=== PATIENT | female | born 1975 | race Caucasian/White ===

== ENCOUNTER 2023-10-21 19:28 | Emergency (ER) | payer BC, SELFPAY ==
[2023-10-21 19:39] VITALS: BP 145/108; PULSE 84; RESP 18; TEMP 36.6; O2SAT 99; BMI 24.1
--- NOTE | 2023-10-21 19:50 | ED_ITS ---
HPI - Abdominal Pain General Time Seen by Provider: 19:50 Date Seen: 10/21/23 Chief Complaint: Abdominal Pain Stated Complaint: L side abdominal pain Time Seen by Provider: 10/21/23 19:46 Source: patient Mode of arrival: ambulatory Limitations: no limitations History of Present Illness HPI narrative: Gemini is a very pleasant 48-year-old female with history of abdominal hysterectomy 4 weeks ago without complication who comes to the emergency room for evaluation of left lower quadrant pain. Patient notes that she felt some abdominal discomfort coming around noon today but thought her pants may have been rubbing on her incision. At approximately 1600 hours she had a sudden onset of left lower quadrant pain that radiated into her back and occasionally across her abdomen. She has had no urinary symptoms to include dysuria or hematuria. She notes that 10 years ago she had kidney stones and she was able to pass them. She denies nausea vomiting. She notes that she cannot lay back because it hurts and she cannot stand up because it hurts. She has not taken any medication for discomfort. Related Data Allergies Allergy/AdvReac Type Severity Reaction Status Date / Time Iodinated Contrast Media Allergy Severe Shortness Verified 10/21/23 20:41 of Breath hydrocodone AdvReac Intermediate Nausea/Vomi Verified 10/21/23 20:41 ting codeine AdvReac Mild Nausea/Vomi Verified 10/21/23 20:41 ting Review of Systems Status of ROS Reports: 10 or more systems reviewed and unremarkable except as noted in History and below Const Denies: fever, chills or fatigue Eyes Denies: change in vision ENMT Denies: throat pain, neck pain or hoarseness Cardio Denies: chest pain or shortness of breath with exertion Resp Denies: shortness of breath or cough GI Reports: abdominal pain; Denies: nausea, vomiting or diarrhea Denies: painful urination, urinary frequency or blood in urine Musculo Reports: back pain; Denies: neck pain or extremity pain Integ/Breast Denies: rash Neuro Denies: headache Endo Denies: fatigue PFSH PFSH Social History Smoking Status: Unknown if ever smoked Exam Narrative: Exam Narrative: Patient is alert and oriented. She is in obvious discomfort and very guarded in her movement. Ears eyes nose clear. Heart with regular rate and rhythm and lungs are clear to auscultation bilaterally. Abdomen is soft. Really cannot recreate the pain although patient is incredibly guarded. No CVA tenderness with percussion. No evidence of bulging in the groin. No lesions noted.. No rebound tenderness. Lower extremity pulses symmetrical. Const: Vital Signs, click to edit/add: Vital Signs - 24 hr 10/21/23 19:39 10/21/23 21:00 10/21/23 22:00 Temperature 97.8 F Pulse Rate [Right Pulse Oximeter] 84 55 L 50 L Respiratory Rate 18 Blood Pressure [Ri ght Upper Arm] 145/108 H 111/72 118/72 Pulse Oximetry 99 96 100 Oxygen Delivery Me thod Room Air Room Air Room Air Documenting provider has reviewed patient's vital signs: yes Course Course ED Course: Differential diagnosis includes but is not limited to ureteral colic, pyelonephritis, diverticulitis, colitis, internal hernia, musculoskeletal etiology. Patient will have IV placed. Pain control with morphine 4 mg, Toradol 15 mg and Zofran 4 mg as well as 1 L of normal saline. Patient notes that she has an IV contrast allergy and therefore will proceed with abdominal CT without contrast. CBC, comprehensive, CRP pending at this time. Reevaluation(s) Reevaluation #1: Patient noted to have increasing pain and Dilaudid 0.5 mg IV was given. Patient complained of some epigastric discomfort and related this to the use of Toradol. Patient wanted to drink has some diet soda but I asked her to hold off at this time. Did give her famotidine 20 mg IV. Reevaluation #2: Awaiting CT results patient's pain is increasing again and gave her Dilaudid 0.5 mg for a 2nd time. Reevaluation #3: CT is negative for any acute findings. Will ultrasound patient as urinalysis is negative for hematuria. Vital Signs Vital signs: Initial Vital Signs Temperature 97.8 F 10/21/23 19:39 Temperature Source Temporal Artery Scan 10/21/23 19:39 Pulse Rate 84 10/21/23 19:39 Respiratory Rate 18 10/21/23 19:39 Blood Pressure 145/108 H 10/21/23 19:39 Blood Pressure Mean 120 H 10/21/23 19:39 Blood Pressure Position Sitting 10/21/23 19:39 Pulse Oximetry 99 10/21/23 19:39 Oxygen Delivery Method Room Air 10/21/23 19:39 Vital Signs Temperature 97.8 F 10/21/23 19:39 Pulse Rate 84 10/21/23 19:39 Respiratory Rate 18 10/21/23 19:39 Blood Pressure 145/108 H 10/21/23 19:39 Pulse Oximetry 99 10/21/23 19:39 Oxygen Delivery Method Room Air 10/21/23 19:39 Temperature 97.8 F 10/21/23 19:39 Pulse Rate 50 L 10/21/23 22:00 Respiratory Rate 18 10/21/23 19:39 Blood Pressure 118/72 10/21/23 22:00 Pulse Oximetry 100 10/21/23 22:00 Oxygen Delivery Method Room Air 10/21/23 22:00 Medications Administered Medications: Discontinued Medications Generic Name Dose Route Start Last Admin Trade Name Freq PRN Reason Stop Dose Admin Famotidine 20 mg 10/21/23 21:31 10/21/23 21:40 Famotidine 10 Mg/Ml Inj IVP 10/21/23 21:32 20 mg ONCE ONE Administration Hydromorphone HCl 0.5 mg 10/21/23 21:13 10/21/23 21:17 Hydromorphone 0.5 Mg/0.5 Ml Inj IVP 10/21/23 21:14 0.5 mg ONCE ONE Administration Hydromorphone HCl 0.5 mg 10/22/23 00:56 10/22/23 01:05 Hydromorphone 0.5 Mg/0.5 Ml Inj IVP 10/22/23 00:57 0.5 mg ONCE ONE Administration Sodium Chloride 1,000 mls @ 1,000 mls/hr 10/21/23 19:59 10/21/23 21:48 0.9 % Sodium Chloride 1000 Ml IV 10/21/23 20:58 Infused .Q1H JOHN Infusion Ketorolac Tromethamine 15 mg 10/21/23 19:59 10/21/23 20:26 Ketorolac 15 Mg/Ml Inj IVP 10/21/23 20:00 15 mg ONCE ONE Administration Morphine Sulfate 4 mg 10/21/23 19:59 10/21/23 20:26 Morphine 4 Mg/Ml Inj IVP 10/21/23 20:00 4 mg ONCE ONE Administration Ondansetron HCl 4 mg 10/21/23 19:59 10/21/23 20:26 Ondansetron 2 Mg/Ml Inj IVP 10/21/23 20:00 4 mg ONCE ONE Administration MDM - Abdominal Pain MDM Narrative Medical decision making narrative: 1. Abdominal pain-patient improved with pain medications. At this time white count, CRP, within normal limits. I did not do a lactate given lack of fever and patient's bicarb was within normal limits. Further all her laboratory values were normal. CT was noncontrast but did not show any evidence of a bowel obstruction, ureteral stone or other abnormality. Patient received a total of morphine 4 mg, Toradol 15 mg, Zofran 4 mg, Dilauddid 0.5 mg x 2. At this time we are awaiting ultrasound report from Radiology. If negative patient will be discharged home. 2. Disposition this patient is signed out to my partner Dr. Hutton. If ultrasound is negative patient will be discharged home with suggestion to return for worsening symptoms. If it is positive Dr. Hutton will talk to her about that results. Patient is aware of this plan. I have told her that if for pain again worsens or she has the onset of other symptoms she will need to return. At that time may repeat labs and/or a CT based on examination. Note during patient's stay here she has not been tachycardic nor hypoxic. No chest pain is reported. Medical Records Attestation: I reviewed the patient's medical records. Lab Data Attestation: I reviewed the patient's lab results. Labs: Lab Results 10/21/23 10/21/23 10/21/23 Range/Units 19:45 19:55 19:59 WBC 5.66 (4.50-11.00) K/uL RBC 4.91 (4.00-5.20) m/uL Hgb 13.0 (12.0-16.0) gm/dL Hct 40.9 (33.0-51.0) % MCV 83 (80-100) fL MCH 27 (26-34) pg MCHC 32 (32-36) gm/dL Plt Count 207 (140-440) K/uL Neut % (Auto) 59.8 (42.0-72.0) % Lymph % (Auto) 29.2 (20-44) % [place] % (Auto) 7.8 (0.0-11.0) % Eos % (Auto) 2.7 (0.0-7.0) % Baso % (Auto) 0.5 (0.0-3.0) % Neut # (Auto) 3.39 (1.7-7.0) K/uL Lymph # (Auto) 1.65 (0.90-2.90) K/uL [place] # (Auto) 0.40 (0.00-0.90) K/UL Eos # (Auto) 0.15 (0.00-0.50) K/uL Baso # (Auto) 0.03 (0.00-0.30) K/uL Abs Immat Gran (auto) 0.00 (0.00-0.30) K/uL Imm/Tot Granulo (auto) 0.0 % Sodium Cancelled 136 Potassium Cancelled 4.2 Chloride Cancelled 105 Carbon Dioxide Cancelled 22 Anion Gap Cancelled 9 BUN Cancelled 10 Creatinine Cancelled 0.6 Estimated Creat Clear Cancelled 105.42 Estimated GFR Cancelled 112 Glucose Cancelled 76 Lactate 0.8 (0.5-1.9) mmol/L Calcium Cancelled 9.5 Total Bilirubin 0.3 (0.1-1.5) mg/dL AST 30 (12-35) U/L ALT 19 (4-35) U/L Alkaline Phosphatase 33 L (40-150) U/L C-Reactive Protein < 0.5 L (0.5-1.0) mg/dL Total Protein 7.9 (6.0-8.3) g/dL Albumin 4.6 (3.3-5.0) g/dL Urine Color Yellow (Yellow) Urine Appearance Clear (Clear) Urine pH 6.0 (5.0-8.5) Ur Specific [place] <= 1.005 (1.000-1.030) Urine Protein Negative (Negative) Urine Glucose (UA) Negative (Negative) Urine Ketones Negative (Negative) Urine Blood Trace-intact A (Negative) Urine Nitrite Negative (Negative) Urine Bilirubin Negative (Negative) Urine Urobilinogen 0.2 (0.2-1.0) Ur Leukocyte Esterase Negative (Negative) Urine RBC 0-2 (0-2) Urine WBC 0-2 (0-5) Ur Squamous Epith Cells None (None-Few) Urine Bacteria None (None) Imaging Data CT scan - abdomen: Attestation: I have reviewed the pertinent imaging results. Radiologist's impression: Lower Chest: No focal consolidation. Normal heart size. No pleural effusions or pneumothorax. Liver: Normal. Gallbladder: Cholecystectomy. Biliary: No biliary ductal dilitation. Pancreas: Normal. Spleen: Normal. Adrenal Glands: Normal. Kidneys: Limited evaluation of the kidneys without the use of intravenous contrast. No obstructive urinary calculus. No hydronephrosis. No suspicious renal masses. Ureters: Normal. No hydroureter. Urinary Bladder: Normal. Bowel: No obstruction or bowel wall thickening. The appendix is normal. Mild colonic stool burden. Pelvic organs: Unremarkable. Peritoneum: No ascites or pneumoperitoneum. Vessels: Mild atherosclerotic calcifications of the abdominal aorta. No aneurysms. Lymph Nodes: No lymphadenopathy. Abdominal Wall/Soft Tissues: Small fat containing umbilical hernia. Bones: Unremarkable. IMPRESSION: Limited evaluation of the kidneys without the use of intravenous contrast. 1. No obstructive calculus or hydronephrosis. 2. No acute abdominopelvic pathology. The etiology of the patient`s left lower quadrant pain is not elucidated on this examination. Discharge Plan Discharge Clinical Impression: Abdominal pain Patient Disposition: Home w/ Parent or Adult Condition: Improved Additional Instructions: This time we do not have etiology for your pain. Will discharge you home at this time. Ibuprofen or Tylenol as needed for pain. Seek medical attention/return to the emergency room for worsening symptoms. Follow-up with your primary MD if you do not has resolution of your symptoms. Follow Up/Referrals: Provider,Not a Local [Primary Care Provider] - Stand Alone Forms: [facility] Info Instructions
--- NOTE | 2023-10-21 19:59 | CRLHL7_ITS ---
For Patients: As a result of the Century Cures Act, medical imaging exams and procedure reports are released immediately into your electronic medical record. You may view this report before your referring provider. If you have questions, please contact your health care provider. INDICATION: Left lower quadrant pain, history of kidney stones 10 years ago. TECHNIQUE: Multiplanar CT examination of the abdomen and pelvis was performed without the use of intravenous contrast, stone virgen protocol. COMPARISON: CT abdomen pelvis 12/20/2015. FINDINGS: Limited evaluation of the solid organs without the use of intravenous contrast. Lower Chest: No focal consolidation. Normal heart size. No pleural effusions or pneumothorax. Liver: Normal. Gallbladder: Cholecystectomy. Biliary: No biliary ductal dilitation. Pancreas: Normal. Spleen: Normal. Adrenal Glands: Normal. Kidneys: Limited evaluation of the kidneys without the use of intravenous contrast. No obstructive urinary calculus. No hydronephrosis. No suspicious renal masses. Ureters: Normal. No hydroureter. Urinary Bladder: Normal. Bowel: No obstruction or bowel wall thickening. The appendix is normal. Mild colonic stool burden. Pelvic organs: Unremarkable. Peritoneum: No ascites or pneumoperitoneum. Vessels: Mild atherosclerotic calcifications of the abdominal aorta. No aneurysms. Lymph Nodes: No lymphadenopathy. Abdominal Wall/Soft Tissues: Small fat containing umbilical hernia. Bones: Unremarkable. IMPRESSION: Limited evaluation of the kidneys without the use of intravenous contrast. 1. No obstructive calculus or hydronephrosis. 2. No acute abdominopelvic pathology. The etiology of the patient`s left lower quadrant pain is not elucidated on this examination. Please note that all CT scans at this facility use dose modulation, iterative reconstruction, and/or weight-based dosing when appropriate to reduce radiation dose to as low as reasonably achievable. Dictated by Juan Valdivia MD @ 10/21/2023 10:07:35 PM (Electronically Signed)
[2023-10-21 20:08] LABS: Lactate* 0.8 mmol/L (0.5-1.9)
[2023-10-21 20:14] LABS: Basophils Absolute Auto 0.03 K/uL (0.00-0.30); Basophils Percent Auto 0.5 % (0.0-3.0); Eosinophils Absolute Auto 0.15 K/uL (0.00-0.50); Eosinophils Percent Auto 2.7 % (0.0-7.0); Hematocrit 40.9 % (33.0-51.0); Lymphocytes Absolute Auto 1.65 K/uL (0.90-2.90); Lymphocytes Percent Auto 29.2 % (20-44); Mean Corpuscular HGB Conc 32 gm/dL (32-36); Mean Corpuscular Hemoglobin 27 pg (26-34); Mean Corpuscular Volume 83 fL (80-100); Monocytes Percent Auto 7.8 % (0.0-11.0); Neutrophils Absolute Auto 3.39 K/uL (1.7-7.0); Neutrophils Percent Auto 59.8 % (42.0-72.0); Platelet Count* 207 K/uL (140-440); Red Blood Count 4.91 m/uL (4.00-5.20); White Blood Count* 5.66 K/uL (4.50-11.00)
[2023-10-21 20:20] LABS: Appearance Urine Clear (Clear); Bilirubin Urine Negative (Negative); Blood Urine Trace-intact (Negative); Color Urine Yellow (Yellow); Glucose Urine Negative (Negative); Ketones Urine Negative (Negative); Leukocyte Esterase Urine Negative (Negative); Nitrite Urine Negative (Negative); Protein Urine Negative (Negative); Specific Gravity Urine <= 1.005 (1.000-1.030); Urobilinogen Urine 0.2 (0.2-1.0)
[2023-10-21 20:20] LABS: Slide Review Reflex No
[2023-10-21 20:25] LABS: Albumin* 4.6 g/dL (3.3-5.0); Chloride* 105 mmol/L (96-114); Potassium* 4.2 mmol/L (3.6-5.1); Sodium* 136 mmol/L (135-149)
[2023-10-21] MEDS: KETOROLAC 15 MG/ML inj IVP (20:26)
[2023-10-21] MEDS: MORPHINE 4 MG/ML INJ IVP (20:26)
[2023-10-21] MEDS: 0.9 % SODIUM CHLORIDE 1000 ml 1,000 ML IV (20:26)
[2023-10-21] MEDS: ONDANSETRON 2 MG/ML inj 4 MG IVP (20:26)
[2023-10-21 20:27] LABS: Creatinine* 0.6 mg/dL (0.5-1.5); Est. Creatinine Clearance* 105.42; Estimated Glomerular Filt Rate 112 ml/min
[2023-10-21 20:28] LABS: Alanine Aminotransferase* 19 U/L (4-35); Alkaline Phosphatase* 33 U/L (40-150); Aspartate Amino Transferase* 30 U/L (12-35); Bilirubin Total* 0.3 mg/dL (0.1-1.5); Blood Urea Nitrogen* 10 mg/dL (5-24); Carbon Dioxide* 22 mmol/L (20-32); Glucose* 76 mg/dL (60-115); Total Protein* 7.9 g/dL (6.0-8.3)
[2023-10-21 20:29] LABS: Calcium* 9.5 mg/dL (8.4-10.6)
[2023-10-21 20:33] LABS: RBC Urine 0-2 (0-2); WBC Urine 0-2 (0-5)
[2023-10-21 20:41] LABS: Anion Gap 9 mEq/L (7-15); C Reactive Protein* < 0.5 mg/dL (0.5-1.0)
[2023-10-21 21:00] VITALS: BP 111/72; PULSE 55; O2SAT 96
[2023-10-21] MEDS: HYDROmorphone 0.5 mg/0.5 ml inj IVP (21:17)
[2023-10-21] MEDS: FAMOTIDINE 10 MG/ML inj 20 MG IVP (21:40)
[2023-10-21 22:00] VITALS: BP 118/72; PULSE 50; O2SAT 100; O2SAT 97
--- NOTE | 2023-10-21 22:15 | CRLHL7_ITS ---
For Patients: As a result of the Century Cures Act, medical imaging exams and procedure reports are released immediately into your electronic medical record. You may view this report before your referring provider. If you have questions, please contact your health care provider. INDICATION: Left lower quadrant pain. TECHNIQUE: Ultrasound pelvis transvaginal. Real-time sonographic images with spectral and color Doppler imaging of the ovaries were obtained. COMPARISON: Same day CT abdomen and pelvis. FINDINGS: Uterus: Status post hysterectomy. Right ovary measures 3.0 x 2.0 x 2.1 cm and left ovary measures 4.4 x 2.1 x 2.9 cm. No ovarian or adnexal masses. Normal arterial and venous blood flow is demonstrated in both ovaries. Trace free fluid in the left adnexal region. Cul-de-sac: No significant free fluid. IMPRESSION: 1. Trace free fluid in the left adnexal region adjacent to the left ovary, nonspecific. 2. Otherwise unremarkable ovaries. 3. Status post hysterectomy. Dictated by Michael Marie MD @ 10/22/2023 1:35:45 AM (Electronically Signed)
[2023-10-22] VITALS: BP 119/74; PULSE 46; RESP 18; O2SAT 100
[2023-10-22] MEDS: HYDROmorphone 0.5 mg/0.5 ml inj IVP (01:05)
[2023-10-22 01:57] VITALS: BP 121/84; PULSE 65; RESP 18; TEMP 36.7; O2SAT 100
[2023-10-22 01:58] VITALS: BP 121/84; PULSE 65; RESP 18; TEMP 36.7
== END 2023-10-22 02:02 | disposition home or self-care (01) ==
PROVIDERS: Family Medicine; Emergency Provider Family Medicine
DX: R10.32 Left lower quadrant pain (principal)
CPT/HCPCS: 36415; 74176; 76830; 80048; 80053; 81001; 81003; 81015; 83605; 85025; 86140; 93976; 94761; 96374; 96375; 99284; J1170; J1885; J2270; J2405; J7030; S0028

== ENCOUNTER 2024-09-24 22:06 | Emergency (ER) | payer OTHER, SELFPAY ==
[2024-09-24 22:12] VITALS: BP 143/77; PULSE 64; RESP 18; TEMP 35.8; O2SAT 100; BMI 27.5
--- NOTE | 2024-09-24 23:15 | CRLHL7_ITS ---
For Patients: As a result of the Century Cures Act, medical imaging exams and procedure reports are released immediately into your electronic medical record. You may view this report before your referring provider. If you have questions, please contact your health care provider. Indication: Right lower quadrant and right flank pain Technique: Noncontrast CT through the abdomen and pelvis with multiplanar reformats. Comparison: CT abdomen and pelvis performed 10/21/2023 Findings: Lower chest: No acute abnormality appreciated. Hepatobiliary: No significant parenchymal abnormality is appreciated. Cholecystectomy. Spleen: Unremarkable. Pancreas: No acute abnormality appreciated. Adrenal glands: No acute abnormality appreciated. Kidneys: Nonobstructing [id number]-left renal stones. No hydronephrosis. No acute parenchymal abnormality appreciated. Bowel: No obstruction. No focal perienteric or pericolonic stranding is appreciated. The appendix is visualized and appears unremarkable. Vascular: Calcified atherosclerosis. Lymph nodes: No gross lymphadenopathy. Peritoneum: No free air. No free fluid. : No acute abnormality appreciated. Soft tissues: No acute abnormality appreciated. Bones: No acute fracture. No lytic or blastic lesion. Mild lumbosacral spondylosis. Impression: Nonobstructing [id number]-left renal stones, no other acute abnormality appreciated to account for patient`s reported symptoms. Please note that all CT scans at this facility use dose modulation, iterative reconstruction, and/or weight-based dosing when appropriate to reduce radiation dose to as low as reasonably achievable. Dictated by Faisal Vaca MD @ 09/24/2024 11:52:39 PM (Electronically Signed)
--- NOTE | 2024-09-24 23:16 | ED_ITS ---
HPI - Abdominal Pain General Chief Complaint: Abdominal Pain Stated Complaint: Abdominal pain, vomiting Time Seen by Provider: 09/24/24 23:08 History of Present Illness HPI narrative: This 49-year-old female comes in with her significant other reporting right lower quadrant and right flank pain that began about 3 or 4 hours prior to arrival. She states that it came on rather suddenly and has been severe and constant since then. She reports nausea with vomiting but does not have any diarrhea or dysuria symptoms. She has not had any fevers. Related Data Allergies Allergy/AdvReac Type Severity Reaction Status Date / Time Iodinated Contrast Media Allergy Severe Shortness Verified 10/21/23 20:41 of Breath hydrocodone AdvReac Intermediate Nausea/Vomi Verified 10/21/23 20:41 ting codeine AdvReac Mild Nausea/Vomi Verified 10/21/23 20:41 ting Review of Systems Status of ROS Reports: 10 or more systems reviewed and unremarkable except as noted in History and below Narrative Constitutional: No fevers, no weight gain or loss. Eyes: No discharge. No vision changes. HENT: No congestion, no sore throat, no ear pain. Cardiovascular: No chest pain, no palpitations. Respiratory: No shortness of breath, no wheezes, no cough. Gastrointestinal: Right lower quadrant abdominal pain and right flank pain with associated nausea and vomiting. Genitourinary: No dysuria, no hematuria. Musculoskeletal: Normal range of motion. Skin: No rashes, no pruritis. Neurological: No dizziness, weakness, sensory change, speech change. Endo/Heme/Allergies: No bruising or bleeding. No polydipsia. Pysch: no suicidality, no anxiety, no insomnia. All other systems reviewed and are negative. [facility] Social History Smoking Status: Unknown if ever smoked Exam Narrative: Exam Narrative: Constitutional: Well-developed, well-nourished, no acute distress. HEENT: Normocephalic, atraumatic. Neck: Normal range of motion. Nontender. Supple. Heart: Regular. No murmurs. Normal rate. Intact distal pulses. Lungs: Clear to auscultation. No chest discomfort. No wheezes, rhonchi, or rales. Abdomen: Normal bowel sounds. Tenderness when palpating in the right lower quadrant.. No obvious rebound tenderness. Genitalia: Deferred. Back: No midline tenderness. Normal range of motion. Extremities: Normal range of motion. No injury. Skin: Intact. No rash. Warm. No erythema or pallor. Neurologic: No altered sensation. No weakness. Alert and oriented. Psychiatric: No suicidality. No anxiety or depression. No insomnia. Nursing notes and vitals signs are reviewed. Const: Vital Signs, click to edit/add: Vital Signs - 24 hr 09/24/24 22:12 Temperature 96.4 F L Pulse Rate [Left P ulse Oximeter] 64 Respiratory Rate 18 Blood Pressure [Ri t Upper Arm] 143/77 H Pulse Oximetry 100 Oxygen Delivery Me thod Room Air Course Vital Signs Vital signs: Initial Vital Signs Temperature 96.4 F L 09/24/24 22:12 Temperature Source Temporal Artery Scan 09/24/24 22:12 Pulse Rate 64 09/24/24 22:12 Pulse Rhythm Regular 09/24/24 22:12 Respiratory Rate 18 09/24/24 22:12 Blood Pressure 143/77 H 09/24/24 22:12 Blood Pressure Mean 99 09/24/24 22:12 Blood Pressure Position Sitting 09/24/24 22:12 Pulse Oximetry 100 09/24/24 22:12 Oxygen Delivery Method Room Air 09/24/24 22:12 Vital Signs Temperature 96.4 F L 09/24/24 22:12 Pulse Rate 64 09/24/24 22:12 Respiratory Rate 18 09/24/24 22:12 Blood Pressure 143/77 H 09/24/24 22:12 Pulse Oximetry 100 09/24/24 22:12 Oxygen Delivery Method Room Air 09/24/24 22:12 Temperature 96.4 F L 09/24/24 22:12 Pulse Rate 64 09/24/24 22:12 Respiratory Rate 18 09/24/24 22:12 Blood Pressure 143/77 H 09/24/24 22:12 Pulse Oximetry 100 09/24/24 22:12 Oxygen Delivery Method Room Air 09/24/24 22:12 Medications Administered Medications: Generic Name Dose Route Start Last Admin Trade Name Freq PRN Reason Stop Dose Admin Hydromorphone HCl 0.5 mg 09/24/24 23:14 09/24/24 23:30 Hydromorphone 0.5 Mg/0.5 Ml Inj IVP 09/24/24 23:15 0.5 mg ONCE ONE Administration Sodium Chloride 500 mls @ 500 mls/hr 09/24/24 23:14 09/24/24 23:31 0.9 % Sodium Chloride 500 Ml IV 09/25/24 00:13 500 mls/hr .Q1H ONE Administration Ondansetron HCl 4 mg 09/24/24 23:14 09/24/24 23:30 Ondansetron 2 Mg/Ml Inj IVP 09/24/24 23:15 4 mg ONCE ONE Administration MDM - Abdominal Pain MDM Narrative Medical decision making narrative: This patient comes in with abdominal pain as described above. She was rather miserable when she arrived. She had an IV placed and did receive Dilaudid 0.5 mg and Zofran 4 mg. This brought some relief to her symptoms. CT imaging of the abdomen and pelvis is obtained without contrast and shows no acute abnormalities to explain her pain other than bilateral nonobstructive renal stones, right greater than left. This patient has been having occasions of abdominal pain randomly. It may be related to kidney stones but there is no other obvious finding to explain this. Lab results also are returning with reassuring findings. The patient is okay to be discharged home and did receive [facility] prescriptions for Toradol and Zofran. I advised her to follow-up with gastroenterology clinic or surgery clinic for ongoing management. Lab Data Labs: Lab Results 09/24/24 Range/Units 23:25 WBC 9.12 (4.50-11.00) K/uL RBC 4.42 (4.00-5.20) m/uL Hgb 14.1 (12.0-16.0) gm/dL Hct 42.5 (33.0-51.0) % MCV 96 (80-100) fL MCH 32 (26-34) pg MCHC 33 (32-36) gm/dL RDW Coeff of [place] 13.7 (11.5-15.5) % Plt Count 166 (140-440) K/uL Neut % (Auto) 84.8 H (42.0-72.0) % Lymph % (Auto) 9.2 L (20-44) % [place] % (Auto) 5.0 (0.0-11.0) % Eos % (Auto) 0.5 (0.0-7.0) % Baso % (Auto) 0.2 (0.0-3.0) % Neut # (Auto) 7.70 H (1.7-7.0) K/uL Lymph # (Auto) 0.80 L (0.90-2.90) K/uL [place] # (Auto) 0.50 (0.00-0.90) K/UL Eos # (Auto) 0.05 (0.00-0.50) K/uL Baso # (Auto) 0.02 (0.00-0.30) K/uL Abs Immat Gran (auto) 0.03 (0.00-0.30) K/uL Imm/Tot Granulo (auto) 0.3 % Sodium 135 (135-149) mmol/L Potassium 4.9 (3.6-5.1) mmol/L Chloride 100 (96-114) mmol/L Carbon Dioxide 25 (20-32) mmol/L Anion Gap 10 (7-15) mEq/L BUN 16 (5-24) mg/dL Creatinine 0.6 (0.5-1.5) mg/dL Estimated Creat Clear 95.88 Estimated GFR 111 ml/min Glucose 127 H (60-115) mg/dL Calcium 9.8 (8.4-10.6) mg/dL Imaging Data CT scan - abdomen: Radiologist's impression: Nonobstructing [id number]-left renal stones, no other acute abnormality appreciated to account for patient`s reported symptoms. Discharge Plan Discharge Clinical Impression: Abdominal pain Patient Disposition: Home w/ Parent or Adult Condition: Stable Additional Instructions: Take medication as needed and indicated. Follow-up with clinic for ongoing diagnosis and management. Consider Gastroenterology or surgery Clinic to accomplish this. Follow up with MD otherwise as needed or return if worsening. Follow Up/Referrals: Provider,Not a Local [Primary Care Provider] - Stand Alone Forms: [employer] Info Instructions
[2024-09-24 23:30] VITALS: BP 144/90; PULSE 52; RESP 18; O2SAT 100
[2024-09-24] MEDS: HYDROmorphone 0.5 mg/0.5 ml inj IVP (23:30)
[2024-09-24] MEDS: ONDANSETRON 2 MG/ML inj 4 MG IVP (23:30)
[2024-09-24] MEDS: 0.9 % SODIUM CHLORIDE 500 ML 500 ML IV (23:31)
[2024-09-24 23:46] LABS: Basophils Absolute Auto 0.02 K/uL (0.00-0.30); Basophils Percent Auto 0.2 % (0.0-3.0); Eosinophils Absolute Auto 0.05 K/uL (0.00-0.50); Eosinophils Percent Auto 0.5 % (0.0-7.0); Hematocrit 42.5 % (33.0-51.0); Hemoglobin* 14.1 gm/dL (12.0-16.0); Immature Granulocytes Abs Auto 0.03 K/uL (0.00-0.30); Immature Granulocytes Pct Auto 0.3 %; Lymphocytes Percent Auto 9.2 % (20-44); Mean Corpuscular HGB Conc 33 gm/dL (32-36); Mean Corpuscular Hemoglobin 32 pg (26-34); Mean Corpuscular Volume 96 fL (80-100); Neutrophils Percent Auto 84.8 % (42.0-72.0); Platelet Count* 166 K/uL (140-440); RDW Coefficient of Variation % 13.7 % (11.5-15.5); Red Blood Count 4.42 m/uL (4.00-5.20); White Blood Count* 9.12 K/uL (4.50-11.00)
[2024-09-24 23:53] LABS: Slide Review Reflex No
[2024-09-24 23:55] LABS: Chloride* 100 mmol/L (96-114); Potassium* 4.9 mmol/L (3.6-5.1); Sodium* 135 mmol/L (135-149)
[2024-09-24 23:58] LABS: Anion Gap 10 mEq/L (7-15); Blood Urea Nitrogen* 16 mg/dL (5-24); Carbon Dioxide* 25 mmol/L (20-32); Creatinine* 0.6 mg/dL (0.5-1.5); Est. Creatinine Clearance* 95.88; Estimated Glomerular Filt Rate 111 ml/min; Glucose* 127 mg/dL (60-115)
[2024-09-24 23:59] LABS: Calcium* 9.8 mg/dL (8.4-10.6)
[2024-09-25] VITALS: BP 136/79; PULSE 54; RESP 16; O2SAT 100
[2024-09-25] MEDS: ONDANSETRON 2 MG/ML inj 4 MG IVP (00:15)
[2024-09-25] MEDS: KETOROLAC 30 MG/ML inj IVP (00:15)
--- OUTSIDE RECORDS SUMMARY | 2024-09-25 00:23 | XMS_ITS ---
Author Organization [facility] Address [address] [place] [address] Care Team Providers Care Manager Environmental Name Role Phone Cameron Zavala Primary Care Provider UnavailDaniel Drake Unavailable [phone] EuCarmen maurer Unavailable [phone] [address] [facility] Drug Encounters Encounter Location Date Provider Diagnosis [facility] [address] [place] [address] 09/16/2024 Carmen Eul Plan Of Treatment No Information Progress Notes * Jayla WHITFIELDOB: [birth year] (49 yo F)Acc No.[id number]:09/16/2024 Patient: Gemini DALTON :1975 A ge:49 Y S ex:Female Address:[address] [place], [address] * true * Date: Generated for Printi ng/Faxing/eTransmitting on: 11/26/2023 12:23 AM PERSONNEL MONITOR
--- OUTSIDE RECORDS SUMMARY | 2024-09-25 00:23 | XMS_ITS ---
Author Organization [facility] Address [address] [place] [address] Care Team Providers Care Activities Aide Name Role Phone Cameron Zavala Primary Care Provider Daniel Dennison Unavailable [phone] Eul, Carmen Unavailable [phone] REASON FOR VISIT RE: Encounters Encounter Location Date Provider Diagnosis [facility] [address] [place] [address] 09/16/2024 Carmen Eul Plan Of Treatment No Information Progress Notes * Jayla WHITFIELDOB: [birth year] (49 yo F)Acc No.[id number]:09/16/2024 Patient: Gemini DALTON :1975 A ge:49 Y S ex:Female Address:[address], [place], [address] * true * Date: Generated for Printi ng/Faledyg/eTransmitting on: 11/26/2023 12:22 AM DESIGN CHIEF
--- OUTSIDE RECORDS SUMMARY | 2024-09-25 00:23 | XMS_ITS | Clinical Summary ---
Author Organization [email or web address] Address [place], [place] [address] Care Team Providers Care Welfare Administrator Name Role Phone Aaron Zavala MD Primary Care Provider [phone] Allergies Active Allergy Reactions Criticality Noted Date Comments Codeine Nausea And Vomiting Medium 10/11/2012 Diatrizoate Allergen Anaphylaxis High 02/13/2021 PT WAS GIVEN OMNI 350 100 ML. PT WAS HAVING CHEST TIGHTNESS/TROUBLE SWALLOWING AFTER INJECTION. Hydrocodone-Acetamino phen Nausea And Vomiting,Other - Describe In Comment Field Medium Cold like symptoms Medications Medication Sig Dispensed Refills Start Date End Date Status ibuprofen (ADVIL; MOTRIN) 200 mg tabletIndications: Malpositioned intrauterine device (IUD), sequela Take 2-4 Tablets (400-800 mg) by mouth every 6 hours if needed for Pain (mild pain). 100 Tablet 06/06/2022 Active omeprazole (PRILOSEC) 40 mg Delayed-Release capsuleIndications :Abdominal pain, epigastric Take 1 Capsule (40 mg) by mouth once daily before a meal. 30 Capsule 12/09/2022 Active acetaminophen (TYLENOL) 325 mg tabletIndications: Abnormal uterine bleeding (AUB) Take 1-2 Tablets (325-650 mg) by mouth every 4 hours if needed for Pain. Max acetaminophen dose: 4000mg in 24 hrs. 100 Tablet 09/18/2023 Active SUMAtriptan (IMITREX) 100 mg tabletIndications: Migraine syndrome Take 1 Tablet (100 mg) by mouth every 2 hours if needed for Migraine. Give at minimum 2hrs apart. Max Dose: 200mg per 24hrs. 10 Tablet 3 12/30/2023 Active Active Problems Problem Noted Date Diagnosed Date Abnormal uterine bleeding (AUB) 09/09/2023 Vapes nicotine containing substance 09/04/2023 History of factor V Leiden mutation 01/30/2023 Nausea 01/30/2023 Overview (01/30/2023): Related to opioids Malpositioned intrauterine device (IUD) 06/05/20 Family history of colonic polyps 09/21/2019 Pap smear for cervical cancer screening 09/06/20 19 Overview (01/16/2023): 08/2019 ASCUS/HPV negative 12/2022 NIL/HPV negative Plan: Pap/HPV testing due in 5 years Myopia of both eyes with astigmatism 10/16/2016 History of migraine 10/11/2012 Headache(784.0) 10/11/2012 Abdominal pain 10/11/2012 Irritable bowel syndrome 10/11/2012 Elevated LFTs 10/11/2012 Primary hypercoagulable state 05/12/2007 Overview (05/12/2007): borderline Antithrombin 3 deficiency Anxiety state, unspecified 05/12/2007 Encounters Date Type Department Care Team Description 09/16/2024 1:00 PM SILVERWARE CLEANER Ancillary Procedure [facility] [address] [place] [address] 09/16/2024 Travel from Last 3 Months Immunizations Name Administration Dates Next Due COVID-19 vaccine (Kutuan NTech 30mcg/0.3mL) PF, MDV 08/07/2021,07/17/2021 Influenza A (H1N1), Inactiva abhishek (Age >=3 Years) 09/07/2009 Influenza, IIV3 (Age >=3 years) 08/28/20 10,08/26/2007,08/12/2005,2003 Influenza, IIV4 09/07/2019 Influenza,CCIIV4 PRESERV FREE 09/12/2016 Influenza,LAIV4 Live Intrana dacia (Flumist) 09/15/2012,07/22/2011,2009 Td (Age >=7 Years) 10/26/2003 Tdap 11/15/2014 Family History Medical History Relation Name Comments Heart Disease Brother Diabetes Father pre-diabetic Heart Disease Father [place] Cancer-colon Maternal Grandfather Diabetes Maternal Uncle Glaucoma Mother Hyperlipidemia Mother Cancer-breast Paternal Aunt Colon polyps Sister Cancerous Anesthesia Problem No Family History Blood Disease No Family History Clotting disorder No Family History Relation Name Status Comments Brother Alive Father Alive Maternal Grandfather Maternal Uncle Mother Alive Paternal Aunt Sister Alive Social History Tobacco Use Types Packs/Day Years Used Date Smoking Tobacco: Former Cigarettes Q uit: 10/25/2016 Smokeless Tobacco: Never Tobacco Cessation:Counseling Given: Not Answered Comments:E-Cig Alcohol Use Standard Drinks/Week Comments Not Currently 0 (1 standard drink = 0.6 oz pure alcohol) A couple days a week; 2 drinks at a time PHQ-2 Answer Date Recorded PHQ-2 TOTAL SCORE 1 12/09/2022 Social Connections Answer Date Recorded Do you often feel lonely or isolated from those around you? 0 09/04/2023 Financial Resource Strain Answer Date R ecorded Difficulty of Paying Living Expenses 3 12/09/2022 Difficulty of Paying Living Expenses Not on file 12/09/2022 Food Insecurity Answer Date Recorded Do you worry your food will run out before you are able to buy more? 1 09/04/2023 Transportation Needs Answer Date Record ed Does lack of transportation keep you from medica l appointments? 1 09/04/2023 Does lack of transportation keep you from work, meetings or getting things that you need? 1 09/04/2023 Housing Stability Answer Date Recorded What is your housing situation today? 1 09/04/2023 Sex and Gender Information Value Date Recorded Sex Assigned at Not on file Gender Identity Not on file Sexual Orientation Not on file Obstetrics History Para Term AB IAB SAB Ectopic Multiple Livin g Live Births 3 3 3 0 0 0 0 0 0 2 3 Date Outcome GA Total Labor Labor/2nd/3rd Weight Sex Type Anes PTL Rianna A1 A5 Name Clin 2004 Term 26w 0d 7h 00m/ 0.26 kg (9 oz) F Vag Epidur al Decea sed Riple y Delivery Location:[facility] Comments:stillbirth 2005 Term 39w 0d 2.92 kg (6 lb 7 oz) M C-Sec tion Epidur al Livin g Brayde n [place] [facility] Delivery Location:[facility] Comments:Failure to de scend 2006 Term F C-Sec tion Nagi Castro Comments still due to blood catalina t in umbilical cord--led to Dx of Factor 5 Lieden Mutation Last Filed Vital Signs Vital Sign Reading Time Taken Comments Blood Pressure 139/88 12/30/2023 12:59 PM SILVERWARE CLEANER Pulse 72 12/30/2023 12:59 PM SILVERWARE CLEANER Temperature 36.7 C (98.1 F) 09/18/2023 12:30 PM SILVERWARE CLEANER Respiratory Rate 16 09/18/2023 12:30 PM SILVERWARE CLEANER Oxygen Saturation 100% 09/18/2023 12:30 PM SILVERWARE CLEANER Inhaled Oxygen Concentration - - Weight 75.8 kg (167 lb) 12/30/2023 12:59 PM SILVERWARE CLEANER Height 160 cm (5' 3) 09/18/2023 6:41 AM SILVERWARE CLEANER Body Mass Index 29.58 09/18/2023 6:41 AM SILVERWARE CLEANER Plan of Treatment Health Maintenance Due Date Last Done Comments Depression screening for age 12+ 12/11/2023 12/11/2022, 12/09/2022, 09/07/2019, Additional history exists COVID-19 vaccine series ( season) 2024 08/07/2021, 07/17/2021 Influenza for age 9-49 06/26/2024 9, 09/12/2016, 09/15/2012, Additional history exists BMI (ht and wt on same day) for age 18+ 09/04/2024 09/04/2023, 01/30/2023, 12/17/2022, Additional history exists Lipids for age 45-75 09/06/2024 09/06/2019 Tetanus booster 11/15/2024 11/15/2014, 10/26/2003 Mammogram for age 45-75 09/16/2025 09/16/20, 09/09/2023, 07/29/2021, Additional history exists Colonoscopy through age 75 09/21/2029 09/21/2019 Tdap Completed 11/15/2014 HIV for age 15-65 Completed 12/09/2022 Hepatitis C screening for age 18-79 Completed 09/04/2023 Pneumococcal series for age 6-64 Aged Out No longer eligible based on patient's age to complete this topic Procedures Procedure Name Priority Date/Time Associated Diagnosis Comments XR MAMMO BILAT SCREENING Routine 09/16/2024 1:06 PM SILVERWARE CLEANER Encounter for screening mammogram for malignant neoplasm of breast ANTI HCV Routine 09/04/2023 4:14 PM SILVERWARE CLEANER Wellness examination LC HIV-1/O/2, 4TH GENERATION Routine 12/09/2022 11:02 AM SILVERWARE CLEANER Night sweats COLONOSCOPY 09/21/2019 9:17 AM SILVERWARE CLEANER LIPID PANEL W REFLEX MEASURED LDL Routine 09/06/2019 8:34 AM SILVERWARE CLEANER Screening, lipid from Last 3 Months or Most Recently Relevant to Health Maintenance Results * XR MAMMO BILAT SCREENING (09/16/2024 1:06 PM SILVERWARE CLEANER) Anatomical Region Laterality Modality BREASTS, Breast Left, Breast Right Bilateral Mammography Impressions 09/16/2024 3:39 PM SILVERWARE CLEANER There is no radiographic evidence for malignancy. Recommend annual mammograms. MAMMOGRAM ASSESSMENT: ACR 1 Negative PATIENTS: You will also receive a letter with your examination results in an easy to read format. If you have questions about your results, please contact your referring provider. Narrative 09/16/2024 3:39 PM SILVERWARE CLEANER For Patients: As a result of the Century Cures Act, medical imaging exams and procedure reports are released immediately into your electronic medical record. You may view this report before your referring provider. If you have questions, please contact your health care provider. XR MAMMO BILAT SCREENING [[id number]] CLINICAL HISTORY: This is an asymptomatic 49 y.o. patient. INDICATION FOR EXAM: Mammogram Screening. TECHNIQUE: CC & MLO views were obtained. This study was evaluated with the assistance of Computer-Aided Detection. COMPARISON FILM: Yes 09/09/23 [facility] FINDINGS: There are scattered areas of fibroglandular density. There are no dominant masses, suspicious micro calcifications or areas of architectural distortion. Aaron Zavala MD MAMMO * ANTI HCV (09/04/2023 4:14 PM SILVERWARE CLEANER) HEPATITIS C ANTIBODY Non-Reacti ve Non-React sondra 09/05/2023 4:53 AM SILVERWARE CLEANER [facility] Comment:Please note, per www .CDC.gov: If a patient is known to be at high risk of HCV infection, or is symptomatic, and the physician's suspicion of HCV infection is high, HCV RNA testing is often employed and is of diagnostic value, even after an initial negative anti-HCV test result. Blood BLOOD SPECIMEN / Unknown Venipuncture / Unknown 09/04/2023 4:14 PM SILVERWARE CLEANER 09/04/2023 4:14 PM SILVERWARE CLEANER Aaron Zavala MD [facility] [address] [place] [address], [place] * HIV-1/O/2, 4TH GENERATION (12/09/2022 11:02 AM SILVERWARE CLEANER) Pathologist [facility] HIV Scr 4th Gen Non Reactive Non Reactive 12/11/2022 8:10 AM SILVERWARE CLEANER [facility] Comment: HIV Negative HIV-1/HIV-2 antibodies and HIV-1 p24 antigen were NOT detected. There is no laboratory evidence of HIV infection. Blood BLOOD SPECIMEN / Unknown Venipuncture / Unknown 12/09/2022 11:02 AM SILVERWARE CLEANER 12/09/2022 11:02 AM SILVERWARE CLEANER Narrative [facility] - 12/11/2022 8:10 AM SILVERWARE CLEANER Performed at: [address] [place] [id number] Grades 7 And 8 Teacher: Sacha Elias MD, Phone: [phone] Nanci Moore MD [facility] ([facility]) [address] [place] [address], [place] * COLONOSCOPY (09/21/2019 9:17 AM SILVERWARE CLEANER) 09/21/2019 9:17 AM SILVERWARE CLEANER Narrative Transcriptions Mariana Castano MD - 09/21/2019 9:51 AM CST Patient Name: Gemini Whitfield Procedure Date: 09/21/2019 Gender: Female Date of : 1975 Admit Type: Ambulatory Procedure: Colonoscopy Proceduralist: Mariana Castano MD Referring MD: Nanci Moore MD Indications/Pre-Op Diagnosis: [place], Colon cancer screening in patient atincreased risk: Family history of 1st-degree relative with colon polyps before age 60 years, Thisis the patient's first colonoscopy Medications: Midazolam 4 mg IV, Fentanyl 100 microgramsIV, Oxygen per cannula, Ondansetron 4 mg IV Procedure Description: The procedure, indications, potential complications, (bleeding, perforation, infection, adverse medication reaction, missed lesionsor polyps) and alternatives available were explained to the patient, who appeared to understand and indicated this. Opportunity for questionswas provided and informed consent obtained. The -[id number] colonoscope was introduced through the anus and advanced to the cecum, identified by appendiceal orifice andileocecal valve. The colonoscopy was performed without difficulty. The patient tolerated the procedure well. The quality of the bowel preparationwas evaluated using the BBPS ([place] Bowel Preparation Scale) with scores of: Right Colon = 3 (entire mucosa seen well with no residualstaining, small fragments of stool or opaque liquid), Transverse Colon = 3(entire mucosa seen well with no residual staining, small fragments of stoolor opaque liquid) and Left Colon = 3 (entire mucosa seen well with no residual staining, small fragments of stool or opaque liquid). Thetotal BBPS score equals 9. The bowel preparation used was GoLYTELY. Scope withdrawal time was 7 minutes. The total duration of the procedurewas 17 minutes. The ileocecal valve, appendiceal orifice, and rectum were photographed. The scope was advanced using CO2 insufflation. Complications: No immediate complications. Estimated Blood Loss & Specimen: Estimated blood loss: none. Specimen collected: None Findings: The colon (entire examined portion) appeared normal. The retroflexed view of the distal rectum and anal verge was normaland showed no anal or rectal abnormalities. Impressions/Post-Op Diagnosis: - The entire examined colon is normal. - The distal rectum and anal verge are normal on retroflexion view. - No specimens collected. Recommendation: - Repeat colonoscopy in 5-10 years. - Patient has a contact number available for emergencies. The signsand symptoms of potential delayed complications were discussed with the patient. Return to normal activities tomorrow. Written discharge instructions were provided to the patient. Moderate Sedation: Moderate (conscious) sedation was administered by the endoscopy nurse and supervised by the endoscopist. The following parameters were monitored: oxygen saturation, heart rate, respiratory rate, adequacyof pulmonary ventilation and reponse to care. Please refer to the patient's medical record flowsheets for moderate sedation details. Mariana Castano MD 09/21/2019 9:51:35 AM This report has been signed electronically. Note Initiated On: 09/21/2019 9:17 AM Scope Withdrawal Time 0 hours 6 minutes 45 seconds Total Procedure Duration Time 0 hours 17 minutes 25 seconds Mariana Castano MD PROCEDURE ORD * LIPID PANEL W REFLEX MEASURED LDL (09/06/2019 8:34 AM SILVERWARE CLEANER) CHOLESTEROL,TOTAL 190 100 - 199 mg/dL 09/06/2019 5:32 PM SILVERWARE CLEANER [facility] TRIGLYCERIDES 59 <150 mg/dL 09/06/2019 5:32 PM SILVERWARE CLEANER [facility] HDL CHOLESTEROL 95 >40 mg/dL 9 5:32 PM SILVERWARE CLEANER [facility] NON-HDL CHOLESTEROL 95 <145 mg/dl 09/06/2019 5:32 PM SILVERWARE CLEANER [facility] CHOL/HDL RATIO 2.00 <4.50 09/06/2019 5:32 PM SILVERWARE CLEANER [facility] LDL CHOLESTEROL 83 <=130 mg/dL 09/06/2019 5:32 PM SILVERWARE CLEANER [facility] PROVIDER ORDERED STATUS RANDOM 09/06/2019 5:32 PM [facility] Blood BLOOD SPECIMEN / Unknown Venipuncture / Unknown 09/06/2019 8:34 AM SILVERWARE CLEANER 09/06/2019 8:35 AM SILVERWARE CLEANER Nanci Moore MD [facility] [address] [place] [address], from Last 3 Months or Most Recently Relevant to Health Maintenance Advance Directives * Full Code (Latest Code Status on File) Date Activated Date Inactivated Comments 09/18/2023 6:34 AM 09/18/2023 3:09 PM Question Answer Comments Code Status Discussion: Reviewed Preferences * Full Code Date Activated Date Inactivated Comments 06/06/2022 8:05 AM 06/06/2022 4:44 PM Question Answer Comments Code Status Discussion: Reviewed Preferences * Full Code Date Activated Date Inactivated Comments 09/21/2019 8:27 AM 09/21/2019 9:58 PM Question Answer Comments Code Status Discussion: Discussed * Full Code Date Activated Date Inactivated Comments 10/11/2012 7:26 PM 10/13/2012 6:54 PM Care Teams Welfare Administrator Relationship Specialty [place] [address] [place] [address] PCP - General Family Practice 09/04/23
--- OUTSIDE RECORDS SUMMARY | 2024-09-25 00:23 | XMS_ITS ---
Author Organization [facility] Address [address] [place] [address] Care Team Providers Care Analytics Consultant Name Role Phone Cameron Zavala Primary Care Provider Daniel Dennison Unavailable [phone] EuCarmen maurer Unavailable [phone] REASON FOR VISIT Mammo Tracking 09/20 Encounters Encounter Location Date Provider Diagnosis [facility] [address] [place] [address] 09/16/2024 Carmen Eul Plan Of Treatment No Information Progress Notes * Jayla WHITFIELDOB: [birth year] (49 yo F)Acc No.[id number]:09/16/2024 Patient: Gemini DALTON :1975 A ge:49 Y S ex:Female Address:[address] [place], [address] * true * Date: Generated for Printi ng/Faledyg/eTransmitting on: 11/26/2023 12:22 AM YOUTH DEVELOPMENT PROFESSIONAL
--- OUTSIDE RECORDS SUMMARY | 2024-09-25 00:23 | XMS_ITS | Clinical Summary ---
Author Organization [facility] Address [address] [place] [address] Care Team Providers Care Mechanical Inspector Name Role Phone Unavailable Primary Care Provider Unavailabl e Source Comments You are receiving this document as you are listed as the primary care provider,follow-up provider, or the patient has been referred to you for consultation.This is in compliance with the Medicare andMedicaid EHR Incentive Program,which states Providers who transition their patient to another setting of careor provider of care or refers their patient to another provider of care shouldprovide summary care record for each transition of care or referral. [facility] Family History Medical History Relation Name Comments Cancer, Breast Cousin Dee Cancer, Ovary Negative Family History Relation Name Status Comments Cousin Dee Social History Tobacco Use Types Packs/Day Years Used Date Smoking Tobacco: Never Assessed Sex and Gender Information Value Date Recorded Sex Assigned at Not on file Gender Identity Not on file Sexual Orientation Not on file Plan of Treatment Health Maintenance Due Date Last Done Comments Cervical Cancer Screening Due 1975 Colon Cancer Screening Plan Due 1975 Hep C Screening (Preventive Services) 1975 HIV Screening (Preventive Services) 1993 Adult Preventive Visit 1995 HepB (1) 1996 Mammogram 07/29/2022 07/29/2021, 08/01/2019 Cholesterol 2022 COVID-19 Vaccine ( season) 2024 Influenza (#1) 2024 09/07/2019, 08/26, 09/18/2015, Additional history exists DTaP/Tdap/Td (2 - Tdap) 11/15/2024 11/15/2014 Zoster/Shingles (1 of 2) 2027 HepA Aged Out No longer eligi ble based on patient's age to complete this topic Hib Aged Out No longer eligi ble based on patient's age to complete this topic IPV (Polio) Aged Out No longer eligi ble based on patient's age to complete this topic Infant RSV Aged Out No longer eligi ble based on patient's age to complete this topic MCV4 Aged Out No longer eligi ble based on patient's age to complete this topic Pneumococcal Aged Out No longer eligi ble based on patient's age to complete this topic Procedures Procedure Name Priority Date/Time Associated Diagnosis Comments MM MAMMOGRAM SCREENING BILAT W 3D ALPESH W CAD Routine 07/29/2021 9:48 AM CDT Visit for screening mammogram from Last 3 Months or Most Recently Relevant to Health Maintenance Results * MM Mammogram Screening Bilat W 3D Alpesh W CAD (07/29/2021 9:48 AM CDT) Anatomical Region Laterality Modality Breast Bilateral Mammography Impressions 08/01/2021 11:57 AM CDT : ACR BI-RADS Category 1: Negative RECOMMENDATION: Follow Up Imaging in 12 months - Bilateral The results and recommendations of this examination will be communicated to the patient. Narrative 08/01/2021 11:57 AM CDT MM MAMMOGRAM SCREENING BILAT W 3D ALPESH W CAD performed on 07/29/21 Compared to: 08/01/2019 MM Mammogram Screening Bilat W 3D Alpesh W CAD and 10/05/2013 Foreign Image(S) Mammogram FINDINGS: Bilateral screening mammogram was performed with the assistance of Computer-Aided Detection and breast tomosynthesis. The breasts are heterogeneously dense, which may obscure small masses. There is no radiographic evidence of malignancy. Nanci Moore MD RAD JANEE from Last 3 Months or Most Recently Relevant to Health Maintenance
--- OUTSIDE RECORDS SUMMARY | 2024-09-25 00:23 | XMS_ITS | Patient Health Record ---
Author Organization [facility] Address [address] [place] [address] Care Team Providers Care Edi Specialist Name Role Phone SallyCameron Primary Care Provider UnavailDaniel Drake Unavailable [phone] Georgia Valadez Unavailable [phone] EulCarmen Unavailable [phone] Allergies Allergen (clinical drug ingredient) Drug/Non Drug Allergy documented on EMR Reaction Allergy Type Onset Date Status ct dye (uncoded) Unknown Allergy Act sondra Vicodin Unknown Drug Allergy Active codeine Codeine Unknown Drug Allergy Active diatrizoate Diatrizoate Unknown Drug Allergy Act sondra Results Component Value Reference Range Notes Sensitive Estradiol (IH) Reviewed date:08/23/2024 11:19:09 AM Interpretation: Performing Lab: Notes/Report: Access 2 ([id number]), [facility] - Lab Testosterone, Total (IH) Reviewed date:08/23/2024 11:19:08 AM Interpretation: Performing Lab: Notes/Report: Access 2 ([id number])[facility] - Lab FSH (IH) Reviewed date:08/23/2024 11:19:08 AM Interpretation: Performing Lab: Notes/Report: Kristie 2 ([id number])[facility] - Lab CBC (INCLUDES DIFF/PLT) Reviewed date:08/23/2024 11:19:08 AM Interpretation: Performing Lab:CB, [facility] [address], [id number] Thierno Trent Notes/Report: 0; 0 WHITE BLOOD CELL COUNT 4.8 3.8-10.8 Thousand/ uL RED BLOOD CELL COUNT 4.31 3.80-5.10 Million/uL HEMOGLOBIN 13.5 11.7-15.5 g/dL HEMATOCRIT 42.1 35.0-45.0 % MCV 97.7 80.0-100.0 fL MCH 31.3 27.0-33.0 pg MCHC 32.1 32.0-36.0 g/dL For adults, a slight decrease in the calculated MCHC value (in the range of 30 to 32 g/dL) is most likely not clinically significant; however, it should be interpreted with caution in correlation with other red cell parameters and the patient's clinical condition. RDW 12.7 11.0-15.0 % PLATELET COUNT 233 140-400 Thousand/uL MPV 12.8 7.5-12.5 fL ABSOLUTE NEUTROPHILS 3134 [phone] cells/uL ABSOLUTE LYMPHOCYTES [phone] cells/uL ABSOLUTE MONOCYTES 475 200-950 cells/uL ABSOLUTE EOSINOPHILS 72 15-500 cells/uL ABSOLUTE BASOPHILS 29 0-200 cells/uL NEUTROPHILS 65.3 LYMPHOCYTES 22.7 MONOCYTES 9.9 EOSINOPHILS 1.5 BASOPHILS 0.6 IRON, TIBC AND FERRITIN PANE L Reviewed date:08/23/2024 11:19:08 AM Interpretation: Performing Lab:CB, [facility] CenterCmfdBI[address] Thierno Trent Notes/Report: 0; 0 IRON, TOTAL 152 40-190 mcg/dL IRON BINDING CAPACITY 305 250-450 mcg/dL (gladys c) % SATURATION 50 16-45 % (calc) FERRITIN 49 16-232 ng/mL Testosterone, Free (IH) Reviewed date:07/07/2024 07:19:13 PM Interpretation: Performing Lab: Notes/Report: Access 2 ([id number]), [facility] - [facility] Sensitive Estradiol (IH) Reviewed date:07/07/2024 07:19:13 PM Interpretation: Performing Lab: Notes/Report: Access 2 ([id number]), [facility] - Lab Sex Hormone Binding Globulin (IH) Reviewed date:07/07/2024 07:19:13 PM Interpretation: Performing Lab: Notes/Report: Access 2 ([id number]), [facility] - [facility] TSH (IH) Reviewed date:07/07/2024 07:19:13 PM Interpretation: Performing Lab: Notes/Report: Access 2 ([id number]), [facility] - Lab T3, Free (IH) Reviewed date:07/07/2024 07:19:13 PM Interpretation: Performing Lab: Notes/Report: Access 2 ([id number]), [facility] - Lab T4, Free (IH) Reviewed date:07/07/2024 07:19:13 PM Interpretation: Performing Lab: Notes/Report: Access 2 ([id number]), [facility] - Lab Testosterone, Total (IH) Reviewed date:07/07/2024 07:19:13 PM Interpretation: Performing Lab: Notes/Report: Access 2 ([id number]), [facility] - Lab Prolactin (IH) Reviewed date:07/07/2024 07:19:13 PM Interpretation: Performing Lab: Notes/Report: Access 2 ([id number]), [facility] - Lab LH (IH) Reviewed date:07/07/2024 07:19:13 PM Interpretation: Performing Lab: Notes/Report: Access 2 ([id number]), [facility] - [facility] FSH (IH) Reviewed date:07/07/2024 07:19:13 PM Interpretation:High Performing Lab: Notes/Report: Access 2 ([id number]), [facility] - Lab DHEA-S (IH) Reviewed date:07/07/2024 07:19:13 PM Interpretation: Performing Lab: Notes/Report: Access 2 ([id number]), [facility] - Lab Cortisol (IH) Reviewed date:07/07/2024 07:19:13 PM Interpretation: Performing Lab: Notes/Report: Access 2 ([id number]), [facility] Lab VITAMIN D,25-OH,TOTAL,IA Reviewed date:07/07/2024 07:19:13 PM Interpretation:Low Performing Lab:CB, [facility] Q[address] [facility] CenterSsyoRM[address] Thierno Trent Notes/Report: VITAMIN D,25-OH,TOTAL,IA 28 30-100 ng/mL Vitamin D Status 25-OH Vitamin D: Deficiency: <20 ng/mL Insufficiency: 20 - 29 ng/mL Optimal: > or = 30 ng/mL For 25-OH Vitamin D testing on patients on D2-supplementation and patients for whom quantitation of D2 and D3 fractions is required, the QuestAssureD() 25-OH VIT D, (D2,D3), LC/MS/MS is recommended: order code 02520 (patients >2yrs). See Note 1 Note 1 For additional information, please refer to http://education.ACTV8me/faq/RMJ423 (This link is being provided for informational/ educational purposes only.) VITAMIN B12 Reviewed date:07/07/2024 07:19:13 PM Interpretation:Normal Performing Lab:CARMINE, [facility], [place]uvuHN[address] Thierno Trent Notes/Report: VITAMIN B12 [phone] pg/mL CBC (INCLUDES DIFF/PLT) Reviewed date:07/07/2024 07:05:11 PM Interpretation: Performing Lab:C[facility], BayRuQresIF[address] Thierno Trent Notes/Report: WHITE BLOOD CELL COUNT 4.5 3.8-10.8 Thousand/ uL RED BLOOD CELL COUNT 4.66 3.80-5.10 Million/uL HEMOGLOBIN 14.9 11.7-15.5 g/dL HEMATOCRIT 45.4 35.0-45.0 % MCV 97.4 80.0-100.0 fL MCH 32.0 27.0-33.0 pg MCHC 32.8 32.0-36.0 g/dL RDW 12.7 11.0-15.0 % PLATELET COUNT 225 140-400 Thousand/uL MPV 12.4 7.5-12.5 fL ABSOLUTE NEUTROPHILS 2327 4844-5290 cells/uL ABSOLUTE LYMPHOCYTES 9532 694-5056 cells/uL ABSOLUTE MONOCYTES 486 200-950 cells/uL ABSOLUTE EOSINOPHILS 149 15-500 cells/uL ABSOLUTE BASOPHILS 41 0-200 cells/uL NEUTROPHILS 51.7 LYMPHOCYTES 33.3 MONOCYTES 10.8 EOSINOPHILS 3.3 BASOPHILS 0.9 IRON, TIBC AND FERRITIN PANE L Reviewed date:07/07/2024 07:10:45 PM Interpretation:High Performing Lab:CARMINE [email or web address] [employer], BayRuAehcVM[address] Thierno Trent Notes/Report: IRON, TOTAL 172 40-190 mcg/dL IRON BINDING CAPACITY 322 250-450 mcg/dL (gladys c) % SATURATION 53 16-45 % (calc) FERRITIN 69 16-232 ng/mL Reason For Referral No Information Medications Medication SIG (Take, Route, Frequency, Duration) Notes Start Date End Date Status Estradiol 0.0375 MG/24HR 1 patch to skin Transdermal Two times a Week for 30 days 08/22/2024 Active Testosterone 4mg/2clicks Activ e Estradiol 0.05 MG/24HR 1 patch to skin Transdermal Two times a Week for 30 days 07/13/2024 Active Miscellaneous Vaginal Products menopause relief Active Collagen Active Misc Natural Product Lemme Debloat Active Misc Natural Product marina stress gummies Active Social History Tobacco Use: Social History Observation Description Date Details (start date - stop date) Current Smoker NA - NA Tobacco Control (Standard) Question Answer Notes Tobacco use: Current smoker How often do you smoke cigarettes? Every day Are you interested in quitting? Not ready to vanessa t Additional Findings: Tobacco user e-cigarette AUDIT-C (Standard) Question Answer Notes Did you have a drink contain ing alcohol in the past year? Yes How often did you have six o r more drinks on one occasion in the past year? 2 to 3 times per week (3 points) How many drinks did you have on a typical day when you were drinking in the past year? 1 or 2 drinks (0 point) How often did you have a dri nk containing alcohol in the past year? 2 to 3 times a week (3 points) Points 6 Interpretation Positive Problems Problem Type SNOMED Code ICD Code Onset Dates Problem Status W/U Status Risk Notes Problem Menopause (383337602) Menopausal and female climacteric states (N95.1) Active confirmed Problem 80226490 Menopausal symptoms (N95.1) Active confirmed Problem Menopausal and postmenopausal disorder (N95.9) Active confirmed Vital Signs Blood pressure diastolic 60 mm Hg 07/05/2024 Height 5'3 in 07/05/2024 Blood pressure systolic 124 mm Hg 07/05/2024 Weight 165.0 lbs 07/05/2024 BMI 29.23 kg/m2 07/05/2024 Encounters Encounter Location Date Provider Diagnosis [facility] [address] [place] [address] 03/03/2024 Daniel Anderson [facility] [address] [place] [address] 07/05/2024 Georgia Valadez [facility] [address] [place] [address] 07/05/2024 Georgiadaniela Valadez Unintended weight ga in R63.5 ; Menopausal symptoms N95.1 ; Mood swings R45.86 ; Irritability R45.4 ; Brain fog R41.89 ; Hot flashes R23.2 ; Generalized joint pain M25.50 ; Low libido R68.82 ; Vaginal dryness N89.8 ; Dry skin L85.3 ; Other fatigue R53.83 and Hair loss L65.[address] [address] 07/05/2024 Georgia Valadez Menopausal and femal e climacteric states N95.1 and Fatigue R53.[address] [address] 07/13/2024 Carmen Eul Menopausal and femal e climacteric states N95.1 ; Hot flashes R23.2 ; Mood swings R45.86 ; Fatigue R53.83 ; Unintended weight gain R63.5 and Brain fog R41.[address] [address] 08/15/2024 Carmen Eul Fatigue R53.83 and Menopausal and postmenopausal disorder N95.[address] [address] 08/22/2024 Carmen Eul Menopausal symptoms N95.1 and Low testosterone level in female R79.89 [place] [address] [place] [address] 06/13/2024 Daniel Anderson [facility] [address] [place] [address] 07/07/2024 Carmen Eul [address] [address] 08/11/2024 Carmen Eul [facility] [address] [place] [address] 09/16/2024 Carmen Eul [address] [address] 09/12/2024 [facility] [address] [place] [address] 09/16/2024 [facility] [address] [place] [address] 09/16/2024 Carmen Fried Assessments Encounter Date Diagnosis (ICD Code) Assessment Notes Treatment Notes Treatment Clinical Notes Section Notes 07/13/2024 Menopausal and female climacteric states (ICD-10 - N95.1) Patients symptoms and labs correlate with menopausal status/syndrome Would benefit from estrogen and testosterone therapy. She does not need progesterone due to not having a uterus Will have patient return in 4-6 weeks for labs and follow up 07/05/2024 Unintended weight gain (ICD-10 - R63.5) 07/05/2024 Menopausal and female climacteric states (ICD-10 - N95.1) 07/05/2024 Fatigue (ICD-10 - R53.83) 07/13/2024 Hot flashes (ICD-10 - R23.2) 07/05/2024 Menopausal symptoms (ICD-10 - N95.1) Patient presents today for bothersome menopause related symptoms. She scheduled today's appointment because she desires hormone replacement therapy (HRT). She acknowledged that some or all of her concerns may be related to etiologies other than perimenopause/menopa use and declines discussion of non-HRT related evaluation and treatment. She can schedule follow up at any time to have further evaluation and non-HRT related treatment if desired. Discussed the information below in detail with patient today: We reviewed the therapeutic goal of HRT is to use the appropriate, often lowest, effective dose of systemic HRT consistent with treatment goals that provide benefits and minimizes risks for the individual woman. Transdermal testosterone is not FDA approved for women. It is recommended by the [place] [employer] for postmenopausal women with hypoactive sexual desire disorder (HSDD) not related to modifiable factors or comorbidities. Limited data also support use in late reproductive-aged premenopausal women, and expert opinion suggests that management of women with premature and early menopause should be the same as for postmenopausal women presenting with HSDD. Testosterone HRT improves sexual desire and reduces sexually associated personal distress in naturally and surgically menopausal women with HSDD, with and without concurrent estrogen and progestogen therapy. It also improves the frequency of satisfying sexual events, arousal, orgasm frequency, pleasure, responsiveness, and self-image. Estrogen HRT is FDA approved for four indications: moderate to severe VMS; prevention of osteoporosis in postmenopausal women; treatment of hypoestrogenism caused by hypogonadism, DIANA, or POI; and treatment of moderate to severe vulvovaginal symptoms. FDA guidance for treatment of genitourinary symptoms related to menopause in the absence of indications for systemic ET suggests the use of low-dose topical vaginal ET. Other menopausal symptoms that may benefit from estrogen HRT that are considered off-label use include: sleep disturbance, urinary tract symptoms (including pelvic floor disorders), sexual function, skin thickness and elasticity, improved quality of life, reduced risk of new onset type II diabetes, enhanced mood and wellbeing (in non-depressed women), and reduced risk of colorectal cancer. Research is lacking regarding role for hair loss. Although hormone therapy may help attenuate abdominal adipose accumulation and weight gain associated with the menopause transition, the effect is small. The indication for Progestogen HRT is need for endometrial protection. Chronic unopposed endometrial exposure to estrogen increases the risk for endometrial hyperplasia or cancer. The menopause-related indication for progestogen use is to prevent endometrial overgrowth and the increased risk of endometrial cancer during estrogen HRT use. Women with an intact uterus using systemic estrogen HRT should receive adequate progestogen, unless they are taking CEE combined with bazedoxifene (BZA). Potential risks of HRT for women aged younger than 60 years include the rare risk of breast cancer with estrogen-progesteron e HRT; endometrial hyperplasia and endometrial cancer with inadequately opposed estrogen; VTE; and gallbladder disease. For women who initiate estrogen HRT more than 10 years from menopause onset or who are aged older than 60 years, the benefit-risk ratio appears less favorable because of the greater absolute risks of coronary heart disease, stroke, venous thromboembolism, and dementia. [place]-analyses of the available data show no severe adverse events during physiological testosterone use, with the caveat that women at high cardiometabolic risk and prior diagnosis of breast cancer were excluded from study populations. The safety of long-term testosterone therapy has not been established. More common adverse events (AEs) include nausea, bloating, weight gain, fluid retention, mood swings (progestogen related), breakthrough bleeding, headaches, hair loss, acne, oily skin, and breast tenderness. Contraindications for oral and transdermal estrogen and progesterone HRT include unexplained vaginal bleeding; liver disease; prior estrogen or progesterone sensitive cancer (including breast cancer); prior coronary heart disease (CHD), stroke, MD, or VTE; or personal history or inherited high risk of thromboembolic disease; peanut allergy (progesterone only). Testosterone HRT is contraindicated in and . It should be avoided in women with male-pattern hair loss. Recommend using caution in women with cystic acne, history of breast disease, and cardiovascular risk factors. FDA approved hormone therapies are recommended over compounded bioidentical menopausal hormone therapy due to potential risks specific to compounding pharmacies such as concerns over customer quality engineer and oversight. There is no FDA approved formulation of testosterone for women. We discussed that pellet HRT is not recommended by ACOG due to concern that pellets cannot be removed, and pellets are compounded. We discussed that Dr. Stevens can remove pellets which contraindicates ACOGs statement. Available formulations for systemic estradiol HRT include oral pills, transdermal patch, transdermal gel, transdermal pellet, and vaginal ring. Available formulations for testosterone HRT include transdermal cream and pellet. Available formulations for progesterone HRT include oral capsule, estradiol/progestin patch, and progestin IUD (not FDA approved for HRT endometrial protection). We reviewed mammogram and pap smear policy at [facility]. All patients on HRT must have annual mammography and up-to-date pap smear with result on file. Patient's mammogram is current and result is in chart. Patient's pap smear is current and result is in chart. Release of information was not indicated today. . After discussion, plan was made to check labs today to determine patient's menopausal status and rule out conditions that mimic the symptoms she is experiencing. She was provided with list of CPT codes for HRT labs. She elected to sign ABN for HRT labs. HRT labs will be drawn today. . Patient was provided with [facility] HRT Packet. She can schedule appointment with Care Needle Board Repairer to discuss billing information related to pellets if desired. She will follow up in 1-4 weeks to review labs and finalize plan of care. 08/15/2024 Fatigue (ICD-10 - R53.83) 08/15/2024 Menopausal and postmenopausal disorder (ICD-10 - N95.9) 08/22/2024 Menopausal symptoms (ICD-10 - N95.1) Estrogen related symptoms improved with patch Labs slightly high, recommended we trial the 0.0375mg patch because the recommendation is the lowest dose that improves your symptoms. She has a few patches left at home so wants to use those first then will go to lower dose. This is OK No progesterone needed - s/p hysterectomy 08/22/2024 Low testosterone level in female (ICD-10 - R79.89) Improving with testosterone cream, but would benefit from higher dose Has a bottle left, so will have her do two clicks behind each knee for a total of 8mg. 07/05/2024 Mood swings (ICD-10 - R45.86) 07/13/2024 Mood swings (ICD-10 - R45.86) 07/13/2024 Fatigue (ICD-10 - R53.83) 07/05/2024 Irritability (ICD-10 - R45.4) 07/05/2024 Brain fog (ICD-10 - R41.89) 07/13/2024 Unintended weight gain (ICD-10 - R63.5) 07/13/2024 Brain fog (ICD-10 - R41.89) 07/05/2024 Hot flashes (ICD-10 - R23.2) 07/05/2024 Generalized joint pain (ICD-10 - M25.50) 07/05/2024 Low libido (ICD-10 - R68.82) 07/05/2024 Vaginal dryness (ICD-10 - N89.8) 07/05/2024 Dry skin (ICD-10 - L85.3) 07/05/2024 Other fatigue (ICD-10 - R53.83) In addition, recommend CBC, labs to evaluate for iron deficiency anemia, vitamin B12 and vitamin D as part of evaluation of fatigue. 07/05/2024 Hair loss (ICD-10 - L65.9) Discussed with patient that consult with derm LEISURE TRAVEL AGENT will be indicated prior to initiating testosterone HRT due to her pattern for hair loss. Plan pending on labs. 07/05/2024 Other Time spent on patient care including - review of previous records - preparation for visit - ordering medications, labs or imaging - documenting visit - discussion of care with another health daycare manager if indicated - direct face to face time with patient including obtaining relevant history, physical exam and discussion of plan of care Total time was 45 minutes spent including some or all of above listed required for care of patient talking about diagnosis, treatment and plan of care with the patient as listed in the treatment portion of the note 08/22/2024 Other Will follow up in 2 months and review how she is feeling on increased testosterone and decreased estrogen Plan Of Treatment No Information Insurance Providers Payer Name Payer Address Payer Phone Subscriber Number Group Number Insured Name Patient Relationship to Insured Coverage Start Date Coverage End Date [employer] (INS BILL) [address] [address] [place] [address] [id number] Gemini Whitfield Self - patient is the insured Medical (General) History Medical History History ICD Code migraines anxiety endometrosis ovarian cysts Surgical History Surgery Date(Month/Year) gallbladder surgery back surgery knee surgery partial hysterectomy Hospitalization History Reason Date(Month/Year) Delivery/
--- OUTSIDE RECORDS SUMMARY | 2024-09-25 00:24 | XMS_ITS | Data Portability ---
Author Organization [facility], [facility] Address [address] [place] [address] Care Team Providers Care Tow Picker Name Role Phone NARESH RODRIGUEZ Primary Care Provider DENNIS SANCHEZ Referring Provider Assessment No assessment recorded. Plan of Treatment Reminders Order Date Submit Date Provider Last Modified By Organization Details Last Modified Time Details Appointments None record ed. Lab None record ed. Referral None record ed. Procedures None record ed. Surgeries None record ed. Imaging None record ed. Medication Orders None record ed. Patient TargetsNo targets recorded. Patient InstructionsNo instructions recorded. Reason for Referral None Reported. Results Created Date Observation Date Name Description Value Unit Range Abnormal Flag Note LastModifiedBy Organization Detail LastModifiedTime 04/14/20 22 03/28/2022 imagi ng/di agnos tic resul t No observ ation record ed. apolcari Not Available 2021 15:53:54 06/24/20 23 11/28/2022 CT, cysto gram No observ ation record ed. apolcari Not Available 2022 22:01:08 Result Notes None recorded. Procedures Surgical History Date Name Laterality Status Provider Name and Address Organization Details Recorded Time 023 APcystonormalfemale completed Thierno Hercules MD [address] [place] [address],[address] [place] [address], [phone], [facility] 07/03/2023 07:36:31 023 Past Data Reviewed completed Thierno Hercules MD [address] [place] [address],[address], [phone], [facility] 07/02/2023 06:36:32 022 Past Data Reviewed completed Thierno Hercules MD [address], [place], [address], [facility] 04/16/2022 14:36:10 delivery completed Not Available Health Note 04/14/2022 14:40:28 Diagnostic colonoscopy completed No t Available Health Note 04/14/2022 14:40:28 Laparoscopic cholecystectomy completed Not Available Health Note 04/14/2022 14:40:28 Imaging Results Imaging Date Name Status LastModified by Organiz ation Details LastModified Time 03/28/2022 imaging/diagno stic result completed Information not available 04/14/2022 15:53:54 11/28/2022 CT, cystogram completed Information not available 06/24/2023 22:01:08 Procedure Notes None recorded. Medical Equipment None Reported. Allergies Allergen ID Allergen Name Allergen Category Reaction Reaction Severity Criticality Documentation Date Start Date Code Code System Note Provider Name and Address Organization Details Recorded Time 256408 acetamino phen / hydrocodo ne medicatio n other Not available Not available 04/14/2022 27577 2 RxNorm flu like sympt oms Not Available Health Note 14:40:27 917203 codeine medicatio n other Not available Not available 04/14/2022 2670 RxNorm n/a Not Available Health Note 14:40:27 Medications Name Sig Start Date Stop Date Status Note LastModified by Organization Details LastModified Time cyclobenzap rine 10 mg tablet TAKE 1 TABLET BY MOUTH THREE TIMES DAILY IF NEEDED FOR MUSCLE SPASM. active Not Available Not Available No t Available doxycycline hyclate 100 mg capsule active HN: Patient reports no longer taking Not Available Not Available Not Available sumatriptan 100 mg tablet TAKE 1 TABLET BY MOUTH EVERY 2 HOURS IF NEEDED FOR MIGRAINE. GIVE AT MINIMUM 2 HOURS APART. MAX 200MG/24 HOURS. active Not Available Not Available No t Available sucralfate 1 gram tablet TAKE ONE TABLET BY MOUTH FOUR TIMES A DAY BEFORE MEALS AND AT BEDTIME active Not Available Not Available No t Available omeprazole 40 mg capsule,del ayed release TAKE ONE CAPSULE BY MOUTH EVERY DAY BEFORE A MEAL active Not Available Not Available No t Available amitriptyli ne 50 mg tablet TAKE ONE TABLET BY MOUTH THREE TIMES A DAY NEEDED active Not Available Not Available No t Available gabapentin 300 mg capsule TAKE ONE CAPSULE BY MOUTH EVERY 6 HOURS AND UP TO TWO CAPSULES BY MOUTH EVERY DAY IN THE EVENING active Not Available Not Available No t Available methylpredn isolone 4 mg tablets in a dose pack TAKE DIRECTED PER PACKAGE INSTRUCTI ONS active Not Available Not Available No t Available oxycodone 5 mg tablet TAKE 1-2 TABLETS BY MOUTH EVERY 6 HOURS NEEDED FOR PAIN. (PHARMACY NOT IN CONTRACT) active Not Available Not Available No t Available hydroxyzine pamoate 25 mg capsule TAKE 1 CAPSULE BY MOUTH 3 TIMES DAILY NEEDED FOR MUSCLE SPASMS active Not Available Not Available No t Available paroxetine mesylate (menopausal symptoms suppressant ) 7.5 mg capsule TAKE ONE CAPSULE BY MOUTH EVERY DAY active Not Available Not Available No t Available Vitals Date Recorded Body height Body mass index (BMI) Body weight Provider Name and Address Organization Details Last Updated DateTime 07/02/2023 162.56 cm 26.6 kg/m2 70110.9009 032471 g Not Available Health Note 07/02/2023 10:41:39 Date Recorded Body weight Body height Body mass index (BMI) Provider Name and Address Organization Details Last Updated DateTime 04/15/2022 26228.89121 82004 g 162.56 cm 25.4 kg/m2 Not Available Health Note 04/15/2022 13:10:07 Social History Question Answer Notes LastModified by Organizat ion Details LastModified Time Tobacco Smoking Status Former Smoker Not Available Health Note 06/30/2023 17:08:27 What Is Your Level Of Alcohol Consumption? Moderate [email or web address] Information not available 06/30/2023 What Is Your Level Of Caffeine Consumption? Moderate [email or web address] Information not available 06/30/2023 How Much Tobacco Do You Chew? None [email or web address] Information not available 06/30/2023 Do You Or Have You Ever Used E-cigarettes Or Vape? Current User Of Electronic Cigarettes [email or web address] Information not available 06/30/2023 When Did You Quit Smoking? 1-5yearssincel phillip [email or web address] Information not available 07/02/2023 Number Of Pregnancies 3 [email or web address] Information not available 04/14/2022 Number Of Vaginal Deliveries 0 [email or web address] Information not available 06/30/2023 Number Of Caesarean Sections 2 [email or web address] Information not available 04/14/2022 Could You Be ? No [email or web address] Information not available 04/14/2022 What Was The Date Of Your Most Recent Tobacco Screening? 07/02/2023 [email or web address] Information not available 06/30/2023 Have You Ever Been Counseled For Unhealthy Alcohol Use? Yes Information not available 07/02/2023 What Is Your Relationship Status? [email or web address] Information not available 06/30/2023 Are You Sexually Active? Yes [email or web address] Information not available 06/30/2023 Do You Or Have You Ever Used Smokeless Tobacco? Never Used Smokeless Tobacco [email or web address] Information not available 06/30/2023 Do You Use Any Illicit Or Recreational Drugs? No [email or web address] Information not available 06/30/2023 Has Tobacco Cessation Counseling Been Provided? Yes Information not available 07/02/2023 On What Date Was Tobacco Cessation Counseling Provided? 07/02/2023 Information not available 07/02/2023 How Many Years Have You Smoked Tobacco? 15 [email or web address] Information not available 06/30/2023 Do You Or Have You Ever Used Any Other Forms Of Tobacco Or Nicotine? No Information not available 07/02/2023 How Many Days In The Past Year Have You Consumed 4 Or More Drinks? 4 [email or web address] Information no t available 06/30/2023 Sex: Unknown Functional Status None recorded. Mental Status None recorded. Family History Relationship Description Onset Age of this Age Resolved Age Notes LastModified by Organization Details LastModified Time Maternal Grandfather Family history of cancer of colon [email or web address] Not available 2021 14:40:27 Father Family history of renal stone [email or web address] Not available 03/27 14:40:27 Medical History Condition Response High Blood Pressure N Kidney Stones Y Lung Disease N Depression N GERD/Acid Reflux N Sexually Transmitted Infection N Cancer N High Cholesterol N Diabetes N Bleeding Disorder Y Heart Disease N Gynecological History Statement/Question Response Irregular periods Y Leaking urine with intercourse N Heavy periods Y Sexually Active? Y Pain with intercourse Y Obstetrics History GPAL:G 0 P 0 0 0 0 Immunizations Vaccine Type Date Status Provider Name and Address Organization Details Recorded Time SARS-COV-2 (COVID-19) vaccine, UNSPECIFIED 10/26/2021 completed Not Available Health Note 04/14/2022 14:40:32 SARS-COV-2 (COVID-19) vaccine, UNSPECIFIED 07/26/2022 completed Not Available Health Note 06/30/2023 17:08:32 Past Encounters Encounter ID Performer Location Encounter Start Date Encounter Closed Date Diagnosis/Indication Diagnosis SNOMED-CT Code Diagnosis ICD10 Code [id number] MD Jeremy MarinEspinoza [address] [address] 04/15/2022 13:08:18 04/16/2022 16:41:42 Abnormal findings on diagnostic imaging of urinary organs 397442430 R93.41 Removal of intrauterine device 58317546 Z30.432 [id number] MD Kit Marin [address] [address] 07/02/2023 10:41:00 07/03/2023 08:09:41 Abnormal findings on diagnostic imaging of urinary organs 434368972 R93.41 Removal of intrauterine device 62397859 Z30.432 Health Concerns Section Related Observation LastModified by Organization Detai ls LastModified Time None Recorded Concern Status LastModified by Organization Details LastModified Time None Recorded Advance Directives Directive None Recorded Payers Encounter Date Sequence Insurance Name Policy Number Policy Raymond Covered Member ID Raymond Member ID Guarantor Name 04/15/2022 1 [place] [id number] Manuelito [id number] [address] 07/02/2023 1 [place] [id number] Manuelito Whitfield [id number] [address] Whitfield Notes Date Note Type Note Provider Name and Address Organization Details Recorded Time 04/15/2022 text/html The patient is h ere to discuss removal of an IUD. Recent CT scan noted that she had an IUD in place which has eroded through the uterus and into the bladder wall, potentially into the bladder itself She has not had any hematuria or new urinary symptoms Chief complaint:reason listed below Other Urological Concern:Other Urological Concern:IUD out of place and close to the bladder also experiencing painBegan:12 Months agoFrequency:WeeklyAs sociated symptoms:Pain and leaking from the vaginal areaWorse with:Some movementsSeverity:Mod erate Progression: Staying the same, Staying the same overall Overactive Bladder Pathway Questionnaire:Uses the restroom:8times per day Uses the restroom (nighttime): [id number] Accidents:0per day Pads: [id number] day Urogenital Distress Inventory (HANANE-6):[2]Frequent urination:Moderately[ 0] Urine leakage related to the feeling of urgency:Not at All[1] Urine leakage related to physical activity, coughing or sneezing:Slightly[0] Small amounts of urine leakage (drops):Not at All[0] Difficulty emptying your bladder:Not at All[2] Pain or discomfort in the lower abdominal or genital area:Moderately Incontinence Impact Questionnaire (IIQ-7):[0] Ability to do digital performance analyst (cooking, housecleaning):Not at All[0] Physical recreation such as walking, or other exercise:Not at All[0] Ability to attend entertainment activities (movie, concerts):Not at All[0] Ability to travel by car more than 30 minutes from home:Not at All[0] Participation in social activities outside your home:Not at All[0] Emotional health (nervousness, depression, etc):Not at All[0] [place] frustrated:Not at All Thierno Hercules MD [address] [place] [address],[address], [place], [address], [facility] 04/16/2022 14:41:41 07/02/2023 text/html The patient is h ere for follow up s/p removal of an IUD. She had an IUD in place for which there was concern of erosion into the bladder wall. No urinary complaints as of 07/02/23. Denies hematuria. Reports occasional random leakage from the vagina that occurs every few weeks. Reports frequency and urgency and persistant vaginal bleeding for 3 months. Is considering an ablation or hysterectomy. CT Cystogram Findings 11/28/22Filling of the urinary bladder with contrast demonstrates no evidence of vesicouterine orvesicovaginal fistula. No evidence of bladder leak or rupture. No filling defects. Underwent hysteroscopy with removal of the IUD with Dr Brock on 06/06/22. The procedure was uncomplicated The documentation for this visit was created with the assistance of judy Bolden scribzuri Hercules MD [address] [place] [address],[address], [place], [address], [facility] 07/03/2023 07:37:51 OBGyn Episode No OBEpisode recorded.
== END 2024-09-25 00:44 | disposition home or self-care (01) ==
LOC: ED 10-11 21:49
PROVIDERS: Emergency Provider Emergency Medicine Emergency Medical Services; PCP Family Medicine
DX: R10.31 Right lower quadrant pain (principal)
CPT/HCPCS: 36415; 74176; 80048; 85025; 96374; 96375; 99284; J1171; J1885; J2405; J7030